=== PATIENT | female | born 1940 | race Caucasian/White ===

== ENCOUNTER 2016-10-02 06:27 | Day surgery (SDC) | payer MEDICARE ==
[~2016-10-02] VITALS: Ht 157.5 cm; Wt 93.7 kg
[~2016-10-02 06:27] MED LIST: ASPI325T PO; CARV12.5 PO; GLIM2TAB PO; HYDR12.56 PO; LEVO125T48 PO; LISI40TA PO; METF850T PO; NASA0.0521; SIMV20 PO; TERA5CAP34 PO
[2016-10-02] MEDS ORDERED: NS 1000P @30 MLS/HR (KVO) IV SCH (07:00)
[2016-10-02 07:17] VITALS: BP 154/73; PULSE 64; RESP 18; TEMP 97.8; O2SAT 95
[2016-10-02] MEDS ORDERED: ACET1CAP18 PO (07:30)
[2016-10-02] MEDS ORDERED: OMEP20TA PO (07:30)
[2016-10-02] MEDS ORDERED: REFRDRO EACH EYE (07:30)
[2016-10-02] MEDS ORDERED: GLIM1TAB PO (07:30)
[2016-10-02] MEDS ORDERED: ASPI1TAB69 PO (07:30)
[2016-10-02] MEDS ORDERED: SIMV20TA PO (07:30)
[2016-10-02] MEDS ORDERED: LISI40TA PO (07:30)
[2016-10-02] MEDS ORDERED: TERA2CAP3 PO (07:30)
[2016-10-02] MEDS ORDERED: HYDR25TA5 PO (07:30)
[2016-10-02] MEDS ORDERED: METF500T4 PO (07:30)
[2016-10-02] MEDS ORDERED: LACTCAP8 PO (07:30)
[2016-10-02] MEDS ORDERED: NITR0.4S SL (07:30)
[2016-10-02] MEDS ORDERED: CALCCHW9 CHEW (07:30)
[2016-10-02] MEDS ORDERED: CARV25TA PO (07:30)
[2016-10-02] MEDS ORDERED: VITA10002 PO (07:30)
[2016-10-02] MEDS ORDERED: FERR1TAB36 PO (07:30)
[2016-10-02] MEDS ORDERED: LEVO100T5 PO (07:31)
[2016-10-02] MEDS ORDERED: VITA3000 PO (07:31)
[2016-10-02] MEDS ORDERED: TRAD5TAB PO (07:31)
[2016-10-02] MEDS ORDERED: IOHEXOL 350 MG/ML 100 ML BTL (for Cath Lab) OTHER ONE (08:18)
[2016-10-02] MEDS ORDERED: MIDAZOLAM HCL 2 MG/2 ML VIAL ONE ×2 (08:24→08:58)
[2016-10-02] MEDS ORDERED: HEPARIN SODIUM - IV 10,000 UNITS/10 ML VIAL ONE (08:25)
[2016-10-02] MEDS ORDERED: HEPARIN-NS/PF INJ 500 ML ONE ×2 (08:25→09:38)
[2016-10-02] MEDS ORDERED: ADENOSINE STRESS TEST INJ 90 MG/30 ML VIAL ONE (09:28)
[2016-10-02] MEDS ORDERED: STERILE WATER FOR INJECTION 10 ML VIAL ONE (09:31)
[2016-10-02] MEDS ORDERED: BIVALIRUDIN 250 MG VIAL ONE (09:31)
[2016-10-02] MEDS ORDERED: NITROGLYCERIN 400 MCG/SPRAY 4.9 GM BOTTLE SL ONE (09:45)
[2016-10-02] MEDS ORDERED: CLOPIDOGREL 300 MG TAB ONE (09:45)
[2016-10-02] MEDS ORDERED: LIDOCAINE 2% JELLY 30 ML TUBE TOP PRN (10:00)
[2016-10-02] MEDS ORDERED: ONDANSETRON HCL 4 MG/2 ML VIAL IVP PRN (10:00)
[2016-10-02] MEDS ORDERED: TEMAZEPAM 15 MG CAP PO PRN (10:00)
[2016-10-02] MEDS ORDERED: CLOPIDOGREL 300 MG TAB PO ONE (10:00)
[2016-10-02] MEDS ORDERED: MISC INFORMATION XX ONE (10:00)
[2016-10-02] MEDS ORDERED: ACETAMINOPHEN 325 MG TAB PO PRN (10:00)
[2016-10-02] MEDS ORDERED: BACITRACIN OINT 0.9 GM PKT TOP ONE (10:00)
[2016-10-02] MEDS ORDERED: PLAV75TA29 PO (10:05)
--- NOTE | 2016-10-02 10:23 | MA ---
cc: AMARJIT PALM MD DATE 10/02/2016 INDICATION Unstable angina with high-risk nuclear stress test. PROCEDURE PERFORMED 1. Fluoroscopy with interpretation 2. Left heart catheterization 3. Coronary angiography 4. Pressure derived fractional flow reserve measurement of the left anterior descending coronary artery 5. Percutaneous endovascular stenting with drug-eluting stent to the mid left anterior descending coronary artery. METHOD The risks, benefits and alternatives discussed with the patient, the patient understood and consented to the procedure. PROCEDURE The patient brought into the catheterization lab, placed on the catheterization table. The right wrist was prepped and draped in a sterile fashion. The right wrist was anesthetized with 2% lidocaine. The right radial artery was cannulated and a 6-Cay[place] Islander 7 cm sheath was placed without difficulty. 200 mcg of intra-arterial nitroglycerin in addition to 3000 units of intravenous heparin was administered. LEFT HEART CATHETERIZATION A 6-[place] Islander JR-5 catheter was advanced across the aortic valve without difficulty. Intraventricular hemodynamics measured at 110/5 mmHg. Left ventricular end-diastolic pressure 8 mmHg. No significant aortic stenosis by transaortic valvular pullback gradient. CORONARY ANGIOGRAPHY 1. Left main coronary is angiographically normal. 2. Left anterior descending coronary proximally has minor luminal irregularities. There is a high first diagonal branch which is moderate to large caliber size and has minor luminal irregularities. In the mid left anterior descending coronary artery just beyond the bifurcation of the diagonal branch, there appears to be a 70% calcific discrete stenosis. The remainder of the left anterior descending coronary has minor luminal irregularities and is quite tortuous. 3. The left circumflex gives rise to a first obtuse marginal branch and has minor luminal irregularities. 4. The right coronary is a dominant vessel giving rise to a posterior descending coronary. The right coronary has minor luminal irregularities. Pressure derived fractional flow reserve measurement of the left anterior descending coronary arteries: Given the patient's progressive symptoms of both shortness of breath and exertional chest pain, I felt obligated to best evaluate the stenosis for potential hemodynamic significance. Angiographically, he was on the borderline visually for intervention. The left coronary circulation was selectively engaged with a 6-[place] Islander JL-4 guide catheter. His pressure wire was then prepped and calibrated. The pressure wire was then advanced to the distal edge of the catheter and normalized. The wire was carefully navigated across the mid left anterior descending coronary into the mid distal segment. IFR was then performed and calculated at 0.85 which does meet hemodynamic significance. At this point, we elected to proceed with percutaneous intervention. Angiomax was administered throughout the entire procedure to maintain appropriate anticoagulation. A 2.5 x 8 mm balloon was advanced to the mid left anterior descending coronary and deployed. Repeat angiography showed still some residual stenosis and I made a small non-flow limiting dissection flap. At this point, we elected to proceed with endovascular stenting. A 2.75 x 16 mm RX Synergy drug-eluting stent was then advanced down to the mid left anterior descending coronary and deployed. Careful attention was paid not to extend the stent beyond the origin of the bifurcation of the diagonal branch. Repeat angiography showed MANUELA-III flow. No dissection or perforation. The wire was removed. Catheter removed and HemoBand applied. CONCLUSION 1. Severe mid left anterior descending coronary artery stenosis confirmed by pressure derived fractional flow reserve measurement to meet hemodynamic significance. 2. Normal left-sided filling pressures. 3. Successful percutaneous intervention with drug-eluting stent to the mid left anterior descending coronary artery. PLAN Hopefully this will translate well with symptomatic improvement. HemoBand is in place. We will monitor the patient closely for any post procedural complications. If she does well, may anticipate possible discharge later today. MD JO Pardo/OMAYRA /10:01 AM /10:13 AM
[2016-10-02] MEDS ORDERED: BIVALIRUDIN INJ 250 MG in SODIUM CHLORIDE 0.9% INJ 50 ML IV SCH (11:00)
--- NOTE | 2016-10-02 22:15 | EKG ---
Date Performed: 10/02/2016 Time Performed: 07:18:46 PTAGE: 76 years EKG: A-V sequential pacemaker. Pacemaker rhythm - no further analysis Since previous tracing, no significant change noted Abnormal ECG PREVIOUS TRACING : 06/06/2010 11.37 DOCTOR: Louise Norton Interpretating Date/Time 10/02/2016 22:14:12
--- NOTE | 2016-10-02 22:15 | EKG ---
Date Performed: 10/02/2016 Time Performed: 10:14:10 PTAGE: 76 years EKG: A-V sequential pacemaker. Pacemaker rhythm - no further analysis Since previous tracing, no significant change noted Abnormal ECG PREVIOUS TRACING : 10/02/2016 07.18 DOCTOR: Louise Norton Interpretating Date/Time 10/02/2016 22:14:26
[2016-10-03] MEDS ORDERED: ASPIRIN 81 MG CHEW TAB PO SCH (09:00)
[2016-10-03] MEDS ORDERED: CLOPIDOGREL 75 MG TAB PO SCH (09:00)
--- NOTE | 2016-10-08 12:21 | EKG ---
Date Performed: 10/02/2016 Time Performed: 13:56:14 PTAGE: 76 years EKG: AV pacing Abnormal ECG PREVIOUS TRACING : 10/02/2016 10.14 Compared to prior tracing no significant change DOCTOR: Andre Heaton Interpretating Date/Time 10/08/2016 12:20:26
== END 2016-10-02 15:27 | disposition home or self-care (01) ==
LOC: HDOC 06:27 → HDIC 06:27 → HDOC 15:27
PROVIDERS: ATTEND Internal Medicine
DX: I25.110 Atherosclerotic heart disease of native coronary artery with unstable angina pectoris (principal); I10 Essential (primary) hypertension; E78.5 Hyperlipidemia, unspecified; Z87.891 Personal history of nicotine dependence; Z95.0 Presence of cardiac pacemaker
CPT/HCPCS: 82948; 86850; 86900; 86901; 92928; 93005; 93454; 93571; C1725; C1769; C1874; C1887; C1893; J0583; J1644; J2250; J3010; J7030; J0153; Q9967

== ENCOUNTER 2017-11-04 06:35 | Day surgery (SDC) | payer MEDICARE ==
[~2017-11-04] VITALS: Ht 157.5 cm; Wt 92.5 kg
[~2017-11-04 06:35] MED LIST changes: +ACET1CAP18 PO; +ASPI1TAB69 PO; -ASPI325T PO; +CALCCHW9 CHEW; -CARV12.5 PO; +CARV25TA PO; +FERR1TAB36 PO; +GLIM1TAB PO; -GLIM2TAB PO; -HYDR12.56 PO; +HYDR25TA5 PO; +LACTCAP8 PO; +LEVO100T5 PO; -LEVO125T48 PO; -METF850T PO; -NASA0.0521; +NITR0.4S SL; +OMEP20TA93 PO; +PLAV75TA29 PO; +REFRDRO EACH EYE; -SIMV20 PO; +SIMV20TA PO; +TERA2CAP3 PO; -TERA5CAP34 PO; +TRAD5TAB PO; +VITA10002 PO; +VITA3000 PO
[2017-11-04] MEDS ORDERED: IOHEXOL 350 MG/ML 50 ML BTL (for Cath Lab) OTHER ONE (06:36)
[2017-11-04 07:14] VITALS: BP 169/71; PULSE 69; RESP 18; TEMP 98; O2SAT 96
[2017-11-04] MEDS ORDERED: ECASA81 PO (07:26)
[2017-11-04] MEDS ORDERED: TYLE325T PO (07:26)
[2017-11-04] MEDS ORDERED: PANT20TA2 PO (07:26)
[2017-11-04] MEDS ORDERED: iron PO (07:26)
[2017-11-04] MEDS ORDERED: calcium PO (07:26)
[2017-11-04] MEDS ORDERED: METF500T4 PO (07:26)
[2017-11-04] MEDS ORDERED: SODI0.9A EACH NARE (07:26)
[2017-11-04] MEDS ORDERED: ISOS30TA3 PO (07:26)
[2017-11-04] MEDS ORDERED: HEPARIN-NS/PF FLUSH BAG 2,000 ML IV FLUSH ONE (08:27)
[2017-11-04] MEDS ORDERED: NITROGLYCERIN INJ 5 ML ONE (08:27)
[2017-11-04] MEDS ORDERED: MIDAZOLAM HCL 2 MG/2 ML VIAL ONE (08:27)
[2017-11-04] MEDS ORDERED: HEPARIN SODIUM - IV 10,000 UNITS/10 ML VIAL ONE (08:27)
--- NOTE | 2017-11-04 09:07 | CATHPROC ---
[employer] HIS Report Study Information Study Number Admission Scheduled Start Study Start [id number] Nov 04 2017 6:35AM 11/04/2017 Nov 04 2017 8:14AM [place] [facility] Cardiac Catheterization Admit Source Facility Department Other [facility] - Neonatal Intensive Care Nurse Physician and Clinical Staff Initial Earle Blandon Travel Freight And Passenger Agent Aura Mcdonald,ANNE Recorder Kacey Templeton,RT(R) Scrub Caroline Kurtz ,RT(R) Procedures Performed Procedure Location (Site) Vessel Name Coronary Angiograms LCA Left Coronary Coronary Angiograms RCA Right Coronary L Heart Cath Equipment Time Card Assembler Description Size Mfg Part Number Used/Scraped TRANSDUCER, TRUWAVE [id number] 08:16 FAGAN JIN * Used W/STOCKCOCK *[id number] *[id number] 08:16 Foodini PACK, CCL CUSTOM * Used *[id number] 08:16 Foodini SUPPORT, ARTERIAL ADULT [id number] *[id number] Used [id number] 08:16 Vungle PACER PEN, SKIN DUAL W/ RULER * Used *[id number] 08:38 MEDTRONIC JR 5.0 DXTERITY CATHETER fr 5 [id number] Used BAND, RADIAL COMPRESSION TR [id number] 08:56 MyEdu MEDICAL 24CM Used SHORT 24 *[id number] SHEATH, FR6 RADIAL PRELUDE 08:16 [employer]du MEDICAL FR 6 [id number] Used EASE 11CM [id number] 08:16 Loud3r WIRE, EXCHANGE 260CM 3MMJ 260CM Used *[id number] 08:16 NYCOMED OMNIPAQUE, 350 MG, 150ML 150ML [id number] Used [id number] 08:16 CASTELLANOS MEDICAL BLANKET,WARM AIR CCL * Used *[id number] Equipment Model, Serial, Lot Number and Expiration Data Description Model Number Serial Number Lot Number Expiration Date JR 5.0 DXTERITY CATHETER [id number] 01-11-2020 History: Current Medications Medication Dosage/Unit Route Frequency Last Date/Time Taken ASA PLAVIX Statins (any) LISINOPRIL CARVEDILOL Glucophage History: Allergies Allergy Reaction morphine NAUSEA clavulanic acid Diarrhea amoxicillin Diarrhea History: Risk Factors Family History of Hypertension Dyslipidemia Previous IL Previous Heart Failure Premature CAD Yes Yes Yes No No Prior Valve Prior PCI Prior PCIDate Prior CABG Surgery No Yes 10/02/2016 No Cerebrovascular Peripheral Artery Chronic Lung On Dialysis Diabetes Diabetes Therapy Disease Disease Disease No Yes No No Yes Oral History: Symptoms/Diagnosis Selection Items SOB History: Stress Tests Stress or Imaging Studies Performed Yes Standard Exercise Stress Test No Stress Echo No Stress Test SPECT Stress Test SPECT Result Stress Test SPECT Ischemia Risk/Extent Yes Positive Intermediate Stress Test CMR No Cardiac CTA Coronary Calcium Score No No History: Other Current Smoker Method Quit Packs a Day Years Used Pack Years No Cigarettes 27 Years Ago 1 38 38 Labs Hgb (g/dl) Hct (%) WBC (l/cumm) Platelets (thousands) 11.60-17.00 35.00-51.00 4.00-11.00 150.00-450.00 11.8 36.6 6.1 198 Glucose (mg/dl) BUN (mg/dl) Creatinine (mg/dl) BUN:Creatinine (1:x) 74.00-106.00 7.00-18.00 0.50-1.30 10.00-20.00 148 13 0.9 14.4 Na (meq/l) K (meq/l) 136.00-145.00 3.50-5.10 148 4.2 INR (PTT:PT) 0.90-1.10 1 CPK-MB (ng/ML) 0.50-3.60 Not Drawn Medication Medication Total Dose (Bolus/Oral) Medication Total Dosage/Unit 1% XYLOCAINE 5 mL FENTANYL 75 mcg HEPARIN 3000 units NTG (IC) 200 mcg VERSED 2 mg Medications (Bolus/Oral) Medication Time Given Dosage/Unit Administered By Reason VERSED 11/04/2017 8:44:05 AM 1 mg Aura Mcdonald 1 mg VERSED given in lab by Aura Mcdonald, ANNE in Left Forearm via Peripheral IV. Ordered by Earle Cueva. FENTANYL 11/04/2017 8:44:50 AM 50 mcg Aura Mcdonald 50 mcg FENTANYL given in lab by Aura Mcdonald, RN in Left Forearm via Peripheral IV. Ordered by Earle Montoya. 1% XYLOCAINE 11/04/2017 8:47:09 AM 5 mL Earle Cueva 5 mL 1% XYLOCAINE given in lab by Earle Cueva in Right Radial via Subcutaneous. NTG (IC) 11/04/2017 8:48:54 AM 200 mcg Earle Cueva 200 mcg NTG (IC) given in lab by Earle Cueva in Right Radial via Intra-coronary. HEPARIN 11/04/2017 8:49:13 AM 3000 units Aura Mcdonald 3000 units HEPARIN given in lab by Aura Mcdonald RN in Left Forearm via Peripheral IV. Ordered by Earle Cueva. VERSED 11/04/2017 8:58:45 AM 1 mg Aura Mcdonald 1 mg VERSED given in lab by Aura Mcdonald RN in Left Forearm via Peripheral IV. Ordered by Earle Cueva. FENTANYL 11/04/2017 8:59:04 AM 25 mcg Aura Mcdonald 25 mcg FENTANYL given in lab by Aura Mcdonald RN in Left Forearm via Peripheral IV. Ordered by Earle Montoya. Medication (Drip) Medication Time Given Dosage/Unit Concentration/Unit Diluent (ml) Solution IV Solutions 11/04/2017 8:20:45 AM 50 mL (IV) NaCl .9 IV Solutions given in lab by Aura Mcdonald RN in Left Forearm via Peripheral IV. Pump/Drip Flow us ing NaCl .9. Initial Case Assessment Cardiovascular HR Rhythm NIBP Chest Pain 70 paced 180/83 0 Edema Present Skin color Skin Mild Normal Warm Dry Neurological State Oriented to time-place- Alert Moves all extremities person Respiration - General Respiration Rate SpO2 (%) (B/min) 18 97 Chronological Log Time Study Chronological Log 8:17:12 Patient arrived via Bed. 8:20:45 IV Solutions given in lab by Aura Mcdonald RN in Left Forearm via Peripheral IV. Pump/D rip Flow using NaCl .9. 8:26:18 Patient Name, D.O.B, / Armband Verified By R.N. 8:26:19 Consent signed by the physician and the patient and verified by the Neonatal Intensive Care Nurse staff. 8:26:19 Pre-op and post- op instructions given; patient acknowledges understanding of instructions . 8:26:20 Verbal Stimulation=2 Physical Stimulation=2 Airway=2 Respiration=2 TOTAL=8. (0=absent, 1=l imited, 2=present) 8:26:22 Anesthesia at bedside. Assumes care of patient. 8:26:23 Allens test performed on the right radial and ulnar artery. 8:26:26 Patient has been NPO for More than 6Hrs. 8:26:26 Skin Breakdown- bruises 8:26:27 Patient Warmer Placed on the Table. 8:26:31 Hever Prominences Protected 8:26:36 A # 20 IV was noted in the Forearm (left). Grade = 0 8:26:58 History and physical on the chart or being dictated. Assessment: Initial Case, HR=70 BPM, Rhythm=paced, JZOH=727/83 mmhg, Chest Pain=0, Edema=Mild, Color=Normal, Skin = Warm, Dry 8:26:59 Neurological: State=Alert, Ox3, HURST Respiration: Resp=18 B/min, SpO2=97 % Vitals capture started with the following parameters, Patient=Adult, Interval=5 min, Initial Pre avvsf=820 mmHg, 8:27:02 Deflation Rate=5 mmHg, Cuff placed on Left Arm 8:27:53 HR=70 bpm, XFYW=245/83 mmhg, SpO2=95.0 %, Resp=15 B/min 8:29:28 Reference ECG taken 8:31:34 Right Radial and groin(s) prepped with 2% chlorhexidine, and draped after a 3 min. waiting t armando. 8:32:50 HR=73 bpm, FZLN=547/78 mmhg, SpO2=96.0 %, Resp=10 B/min 8:37:14 MD paged 8:37:19 Pressure channel 1 zeroed. 8:37:45 MD responded 8:37:51 HR=66 bpm, CDHR=248/68 mmhg, SpO2=95.0 %, Resp=21 B/min 8:41:39 MD arrived. 8:42:50 HR=67 bpm, WWCI=068/73 mmhg, SpO2=93.0 %, Resp=20 B/min Time Out. Correct patient, correct procedure, correct physician, power injector not loaded with contrast with surgical 8:44:00 team present. Time Out Concurred by MD and individual staff in procedure. 8:44:05 1 mg VERSED given in lab by Aura Mcdonald, RN in Left Forearm via Peripheral IV. Ordered b Earle Brasher. 8:44:50 50 mcg FENTANYL given in lab by Aura Mcdonald, RN in Left Forearm via Peripheral IV. Order ed by Earle Cueva. 8:45:50 Case Start 8:47:09 5 mL 1% XYLOCAINE given in lab by Earle Cueva in Right Radial via Subcutaneous. 8:47:49 HR=64 bpm, MRVU=245/66 mmhg, SpO2=95 %, Resp=17 B/min 8:48:16 Access site was Right Radial Artery. A SHEATH, FR6 RADIAL PRELUDE EASE 11CM FR 6 was advanced into the Radial (right) using the Percu helenaous 8:48:29 technique. 8:48:54 200 mcg NTG (IC) given in lab by Earle Cueva in Right Radial via Intra-coronary. 8:49:13 3000 units HEPARIN given in lab by Aura Mcdonald RN in Left Forearm via Peripheral IV. Or dered by Earle Cueva. A JR 5.0 DXTERITY CATHETER fr 5 was advanced over a wire. OMNIPAQUE, 350 MG, 150ML 150ML was use d for 8:49:52 injections. Recorded Pressure: LV, HR=67, Condition=Condition 1 8:50:23 (Left Ventricle) LV 138/4/10 Recorded Pressure: LV, Ao, HR=66, Condition=Condition 1 8:50:27 (Left Ventricle) LV 137/4/8, (Aorta) Ao 133/66/93 Recorded Pressure: Ao, HR=65, Condition=Condition 1 8:51:02 (Aorta) Ao 125/64/89 8:51:15 The RCA was injected and visualized at various angles. OMNIPAQUE, 350 MG, 150ML 150ML used. After removing the current catheter a JL 3.5 INFINITI CATHETER FR 5 was advanced over a WIRE, EXCHANGE 260CM 8:51:53 3MMJ 260CM. 8:52:44 HR=65 bpm, PYRR=352/54 mmhg, SpO2=94.0 %, Resp=19 B/min 8:53:00 The LCA was injected and visualized at various angles. OMNIPAQUE, 350 MG, 150ML 150ML use d. 8:54:59 Catheter was removed 8:55:04 Case End Radial Compression Device Used. 12 mLs of air placed in BAND, RADIAL COMPRESSION TR SHORT 24 2 4CM. Affected 8:56:07 hand 98 % O2 saturation. 8:56:19 No case complications noted. 8:56:22 Cine recording checked. 8:56:23 Holding Area notified. 8:56:33 Bedside Report will be given. 8:56:35 A Left Heart Cath was performed. 8:58:26 HR=68 bpm, VZJJ=884/65 mmhg, SpO2=97.0 %, Resp=20 B/min 8:58:45 1 mg VERSED given in lab by Aura Mcdonald, ANNE in Left Forearm via Peripheral IV. Ordered by Earle Cueva. 8:59:04 25 mcg FENTANYL given in lab by Aura Mcdonald, RN in Left Forearm via Peripheral IV. Ord ered by Earle Cueva. 9:03:00 Vitals capture stopped. 9:04:00 Patient moved to stretcher End Study - Contrast Media Used In Study Contrast Total Opened (mL) Total Used (mL) Total Wasted (mL) Omnipaque 15 15 0 End Study - Maximum Contrast Load Max Contrast Load (mL) 513.9 End Study - Radiation Exposure Fluoro Time (minutes) 0.8 End Study - Patient Disposition Complications Transferred To Interventional Outcome No Telemetry Bed No attempt made
[2017-11-04] MEDS ORDERED: MISC INFORMATION XX ONE (09:15)
--- NOTE | 2017-11-04 09:16 | MA ---
cc: Earle Cueva MD DATE: 11/04/2017 INDICATION: Unstable angina. PROCEDURES PERFORMED: 1. Fluoroscopy with interpretation. 2. Coronary angiography. 3. Left heart catheterization. METHOD: The risks, benefits and alternatives discussed with the patient. The patient understood and consented to the procedure. PROCEDURAL STATEMENT: The patient was brought into the catheterization lab, placed on the catheterization table. The right wrist was prepped and draped in a sterile fashion. The right wrist was anesthetized with 2% lidocaine. The right radial artery was cannulated and a 6-Russian 7 cm sheath was placed without difficulty. LEFT HEART CATHETERIZATION: Intraventricular hemodynamics measured at 137/4 mmHg. CORONARY ANGIOGRAPHY: 1. Left main coronary artery is angiographically normal. 2. Left anterior descending coronary artery has some mild luminal irregularities in the diagonal branch which is a large caliber sized. The mid left anterior descending coronary artery also has some minor luminal irregularities. The proximal mid stent is widely patent at the level of the bifurcation of the diagonal branch. 3. Left circumflex gives rise to an obtuse marginal branch with minor luminal irregularities. 4. Right coronary artery is a dominant vessel giving rise to a posterior descending branch which has mild luminal irregularities. CONCLUSIONS: 1. Mild nonobstructive coronary artery disease. 2. Widely patent left anterior descending coronary stent. 3. Normal left-sided filling pressure. PLAN: The patient is to be monitored closely for any post-procedural complications. She will need a workup for noncardiac causes of her exertional shortness of breath thought to be anginal equivalent. Earle Cueva MD SANDI/DL , 09:04 AM , 09:15 AM
--- NOTE | 2017-11-04 20:51 | EKG ---
Date Performed: 11/04/2017 Time Performed: 07:18:40 PTAGE: 77 years EKG: A-V sequential pacemaker. Pacemaker rhythm - no further analysis Abnormal ECG PREVIOUS TRACING : 10/02/2016 13.56 Since the previous tracing, no significant change noted DOCTOR: Faisal Suazo Interpretating Date/Time 11/04/2017 20:50:42
[2017-11-05] MEDS ORDERED: FERR325T18 PO (10:37)
[2017-11-05] MEDS ORDERED: CALC600T5 PO (10:37)
== END 2017-11-04 12:49 | disposition home or self-care (01) ==
LOC: HDOC 06:35 → HDIC 06:35 → HDOC 12:49
PROVIDERS: ATTEND Internal Medicine
DX: I25.110 Atherosclerotic heart disease of native coronary artery with unstable angina pectoris (principal); I10 Essential (primary) hypertension; E11.9 Type 2 diabetes mellitus without complications; Z95.5 Presence of coronary angioplasty implant and graft; Z79.84 Long term (current) use of oral hypoglycemic drugs; Z79.82 Long term (current) use of aspirin
CPT/HCPCS: 86850; 86900; 86901; 93005; 93458; 99152; C1769; C1893; J1644; J2250; J3010; Q9967